=== PATIENT | female | born 1965 | race Caucasian/White ===

== ENCOUNTER 2018-10-07 02:03 | Emergency (ER) | payer OTHER ==
[~2018-10-07] VITALS: Ht 177.8 cm; Wt 104.3 kg
[2018-10-07] MEDS ORDERED: KETOROLAC TROMETHAMINE 30 MG/ML VIAL IV STA (03:04)
[2018-10-07] MEDS ORDERED: KETOROLAC TROMETHAMINE 30 MG/ML VIAL ONE (03:10)
--- NOTE | 2018-10-07 03:13 | Diagnostic Imaging Report ---
Forearm CPT code: 32874 Indication: Trauma Technique: A.P. and lateral views of the left forearm obtained. Findings: The bones are diffusely demineralized. No abnormalities of the radius or ulna. The carpal bones are intact and normal in alignment. Distal humerus is normal. No joint effusion. No foreign bodies in the soft tissues. IMPRESSION: No traumatic pathology. Signed by: Dr. Nicholas Contreras MD on 10/07/2018 3:09 AM
--- NOTE | 2018-10-07 03:14 | Diagnostic Imaging Report ---
Hand Complete CPT code: 44458 Indication:Trauma Technique: Three views of the left hand obtained Comparison: None. Findings: The bones are diffusely demineralized. Distal radius and ulna appear intact. Carpal bones appear generally well aligned. The digits are intact. There is narrowing of the proximal and distal IP joints without significant osteophytosis. Soft tissue swelling of the dorsum of the hand at the MCPs. No radiopaque foreign body. IMPRESSION: No evidence for displaced fracture or current dislocation of the hand. Signed by: Dr. Nicholas Contreras MD on 10/07/2018 3:11 AM
--- NOTE | 2018-10-07 03:16 | Diagnostic Imaging Report ---
Wrist Complete Left CPT Code: 98453 Indication: Trauma Technique: Three views left wrist obtained. Comparison: None Findings: The bones are diffusely demineralized. The osseous structures are well developed and mineralized. No fractures or dislocations. No focal osseous lesions. There is mild soft tissue swelling of the dorsum of the hand at the MCPs. No radio-opaque foreign bodies in the soft tissues. IMPRESSION: No evidence of displaced fracture or dislocation involving the wrist. Signed by: Dr. Nicholas Contreras MD on 10/07/2018 3:13 AM
[2018-10-07] MEDS ORDERED: VANCOMYCIN 1GM/NS 250 ML 250 ML IV STA (03:31)
[2018-10-07] MEDS ORDERED: CEFTRIAXONE SOD 1 GM/NS 50 ML 50 ML IV STA (03:31)
[2018-10-07] MEDS ORDERED: VANCOMYCIN 1GM/NS 250 ML 250 ML ONE (03:54)
[2018-10-07] MEDS ORDERED: CEFTRIAXONE SOD 1 GM/NS 50 ML 50 ML IV ONE (03:54)
== END 2018-10-07 06:05 | disposition other institution (70) ==
LOC: FSED 02:03
DX: M79.642 Pain in left hand (principal); M25.532 Pain in left wrist; M79.632 Pain in left forearm; W22.8XXA Striking against or struck by other objects, initial encounter; Y92.008 Other place in unspecified non-institutional (private) residence as the place of occurrence of the external cause; H91.3 Deaf nonspeaking, not elsewhere classified; I10 Essential (primary) hypertension; E11.9 Type 2 diabetes mellitus without complications; E03.9 Hypothyroidism, unspecified; I69.354 Hemiplegia and hemiparesis following cerebral infarction affecting left non-dominant side; F32.9 Major depressive disorder, single episode, unspecified
CPT/HCPCS: 36415; 73090; 73110; 73130; 84550; 87040; 99284; J0696; J1885; J3370

== ENCOUNTER 2018-10-18 19:51 | Emergency (ER) | payer MEDICARE, OTHER ==
[~2018-10-18] VITALS: Ht 175.3 cm; Wt 90.3 kg
--- OUTSIDE RECORDS SUMMARY | 2018-10-18 19:54 | XMS REPORT ---
[facility] Phone Unavailable Care Team Providers [facility] Writing [facility] Director Name Role Phone MARCIAL VIGIL Unavailable Unavailable Problems This patient has no known problems. Allergies, Adverse Reactions, Alerts This patient has no known allergies or adverse reactions. Medications This patient has no known medications. Results Test Description Test Time Test Comments Text Results Atomic Results Result Comments WRIST 3VW LT - HOPD 2018-10-07 03:11:00 [facility] [address] [place] [address] Patient Name: ROSA MADRID MR #: [id number] : 1965 Age/Sex: 53/F Req #: [id number] [facility] Physician: Ordered by: MARCIAL VIGIL MD Report #: [id number] Location: FS Room/Bed: Procedure: [id number] HOPD/WRIST 3VW LT - HOPD Exam Date: 10/07/18 Exam Time: 0230 REPORT STATUS: Signed Wrist Complete Left CPT Code: 17973 Indic ation: Trauma Technique: Three views left wrist obtained. Comparison: None Findings: The bones are diffusely demineralized. The osseous structures are well developed and mineralized. No fractures or dislocations. No focal osseous lesions. There is mild soft tissue swelling of the dorsum of the hand at the MCPs. No radio-opaque foreign bodies in the soft tissues. IMPRESSION: No evidence of displaced fracture or dislocation involving the wrist. Signed by: Dr. Chris Contreras MD on 10/07/2018 3:13 AM Dictated By: CHRIS CONTRERAS MD 2 Transcribed By: REN on 10/07/18312 COPY TO: MARCIAL VIGIL MD HAND [address] [facility] 2018-10-07 03:10:00 [place] [address] Patient Name: ROSA MADRID MR #: [id number] : 1965 Age/Sex: 53/F Req #: [id number] [facility] Physician: Ordered by: MARCIAL VIGIL MD Report #: [id number] Location: ON [facility] OF [facility] Room/Bed: Procedure: [id number] HOPD/HAND 3 VIEW - [facility] Exam Date: 10/07/18 Exam Time: 0230 REPORT STATUS: Signed Hand Complete CPT code: 32208 Indicatio n:Trauma Technique: Three views of the left hand obtained Comparison: None. Findings: The bones are diffusely demineralized. Distal radius and ulna appear intact. Carpal bones appear generally well aligned. The digits are intact. There is narrowing of the proximal and distal IP joints without significant osteophytosis. Soft tissue swelling of the dorsum of the hand at the MCPs. No radiopaque foreign body. IMPRESSION: No evidence for displaced fracture or current dislocation of the hand. Signed by: Dr. Chris Contreras MD on 10/07/2018 3:11 AM Dictated By: CHRIS CONTRERAS MD 0 Transcribed By: REN on 10/07/18310 COPY TO: MARCIAL VIGIL MD FOREARM 2 VIEW LT -HOPD 2018-10-07 03:09:00 [place] [address] Patient Name: ROSA MADRID MR #: [id number] : 1965 Age/Sex: 53/F Req #: [id number] Adm Physician: Ordered by: MARCIAL VIGIL MD Report #: [id number] Location: [facility] Room/Bed: Procedure: [id number] HOPD/FOREARM 2 VIEW LT -HOPD Exam Date: 10/07/18 Exam Time: 0230 REPORT STATUS: Signed Forearm CPT code: 38124 Indication: Trauma Technique: A.P. and lateral views of the left forearm obtained. Findings: The bones are diffusely demineralized. No abnormalities of the radius or ulna. The carpal bones are intact and normal in alignment. Distal humerus is normal. No joint effusion. No foreign bodies in the soft tissues. IMPRESSION: No traumatic pathology. Signed by: Dr. Chris Contreras MD on 10/07/2018 3:09 AM Dictated By: CHRIS CONTRERAS MD 8 Transcribed By: REN on 10/07/18308 COPY TO: MARCIAL VIGIL MD
--- NOTE | 2018-10-18 21:03 | Diagnostic Imaging Report ---
EXAMINATION: Head CT without contrast. HISTORY:Status post fall. COMPARISON:None. TECHNIQUE: Multidetector axial images were obtained from the foramen magnum to the vertex without contrast. The images were reconstructed using brain and bone algorithms. Thin section brain images were reformatted into coronal and sagittal planes. Dose modulation, iterative reconstruction, and/or weight based adjustment of the mA/kV was utilized to reduce the radiation dose to as low as reasonably achievable. Intravenous contrast: None IMAGE QUALITY: Suboptimal evaluation particularly at the level of skull base and posterior fossa structures due to streak artifacts. FINDINGS: Skull/scalp: Moderate left frontal scalp soft tissue edema/hematoma that extends inferiorly to left periorbital region. No soft tissue emphysema or radiopaque foreign body. No acute depressed or displaced calvarial fracture. Parenchyma: Focal hypodensity in right paramedian aspect of the allison may either represent an artifact or an old lacunar infarct. 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 No acute hemorrhage, mass or acute major vascular territorial infarct. Arteries: No density suggestive of thrombosis. Dural sinuses: No abnormal density suggestive of thrombosis. Ventricles: No hydrocephalus or displacement. Extra-axial spaces: Posterior fossa, retrocerebellar extra-axial cystic lesion with mild regional mass effect may either represent an arachnoid cyst or aisha cisterna magna. Brain volume: Normal for age. Craniocervical junction: No mass, Chiari malformation, or basilar invagination. Sella: No mass. Paranasal/mastoid sinuses: Imaged portions unremarkable. IMPRESSION: 1. Moderate left frontal scalp soft tissue edema/hematoma. No acute fracture. 2. No acute posttraumatic intracranial abnormality. 3. Old lacunar infarct versus an artifact in right paramedian aspect of allison. 4. 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 Signed by: Dr. Keyla Clifton M.D. on 10/18/2018 9:00 PM
--- NOTE | 2018-10-18 21:08 | Diagnostic Imaging Report ---
History:Status post fall. Comparison studies: None Technique: Axial images were obtained through the maxillofacial region. Coronal and sagittal images reconstructed from the axial data. Dose modulation, iterative reconstruction, and/or weight based adjustment of the mA/kV was utilized to reduce the radiation dose to as low as reasonably achievable. Intravenous contrast: None Findings: Soft tissues: Moderate left frontal scalp soft tissue edema/hematoma that extends inferiorly to left preseptal, periorbital region. No radiopaque foreign body. Bones: No fractures or bony abnormalities. Orbits: Globes: Grossly intact. Extra or intraconal abnormalities: None. No retrobulbar hemorrhage. Paranasal sinuses: Clear IMPRESSION: 1. Moderate left frontal scalp and periorbital soft tissue edema/hematoma. 2. No acute fracture. Signed by: Dr. Keyla Clifton M.D. on 10/18/2018 9:05 PM
[2018-10-18] MEDS ORDERED: TETANUS DIPHTH0.5 ML IM (21:42)
[2018-10-18] MEDS ORDERED: TETANUS/DIPHTHERIA TOX ADULT 0.5 ML SYR ONE (21:46)
[2018-10-18] MEDS ORDERED: IBUPROFEN400 MG PO (21:50)
[2018-10-18 21:58] VITALS: BP 167/68
[2018-10-18] MEDS ORDERED: TETANUS/DIPHTHERIA TOX ADULT 0.5 ML SYR IM ONE (22:00)
== END 2018-10-18 22:29 | disposition home or self-care (01) ==
LOC: FSED 19:51
DX: S00.83XA Contusion of other part of head, initial encounter (principal); S50.812A Abrasion of left forearm, initial encounter; S50.811A Abrasion of right forearm, initial encounter; S00.212A Abrasion of left eyelid and periocular area, initial encounter; W18.30XA Fall on same level, unspecified, initial encounter; Y92.008 Other place in unspecified non-institutional (private) residence as the place of occurrence of the external cause
CPT/HCPCS: 70450; 70486; 90471; 90714; 99283